=== PATIENT | male | born 1995 | race Two or more races ===

== ENCOUNTER 2017-04-27 19:50 | Emergency (ER) | END 2017-04-27 20:05 | disposition home or self-care (01) ==

== ENCOUNTER 2018-11-20 15:14 | Emergency (ER) | payer MEDICAID, OTHER ==
[~2018-11-20] VITALS: Ht 175.3 cm; Wt 89.0 kg
[~2018-11-20 15:14] MED LIST: ACET500C5 PO; ALBU8.5H8 INH; AZIT250T PO; BENZ-6 PO; CETI10CA PO; IBUP-1542 PO; LORA-186 PO
[2018-11-20 15:16] VITALS: BP 158/70; PULSE 77; RESP 18; Ht 175.3 cm; Wt 89.0 kg
--- NOTE | 2018-11-20 15:21 | EN ---
Date/Time of Note Date/Time of Note DATE: 11/20/18 TIME: 15:20 ER Progress Note 23-year-old male with intermittent chest pain since yesterday. EKG and chest x- ray ordered. DIEGO PENA PA-C Nov 20, 2018 15:21
--- NOTE | 2018-11-20 16:02 | ERD ---
ER Documentation Chief Complaint Chief Complaint cwp intermittent since yesterday HPI 23-year-old otherwise healthy male presents with intermittent chest wall pain that began yesterday. It is worse when he moves his arm or takes a deep breath. At this time he is asymptomatic. He has no cardiac past medical history. Denies any alcohol or drugs. No fever or recent illness. No cardiac past medical history. No palpitations or shortness of breath. ROS All systems reviewed and are negative except as per history of present illness. Medications Home Meds Active Scripts Azithromycin* (Zithromax*) 250 Mg Tablet, 250 MG PO .ZPACK DIRECTED, #6 TAB TAKE 500 MG (2 TABS) THE FIRST DAY THEN 250 MG (1 TAB) DAYS 2-5 Prov:SALBADOR ORLANDO NP 04/27/17 Acetaminophen* (Tylophen*) 500 Mg Capsule, 1 CAP PO Q6H PRN for PAIN AND OR ELEVATED TEMP, #20 CAP Prov:SALBADOR ORLANDO NP 04/27/17 Ibuprofen* (Motrin*) 600 Mg Tab, 600 MG PO Q6H PRN for PAIN AND OR ELEVATED TEMP, #30 TAB Prov:SALBADOR ORLANDO NP 04/27/17 Albuterol Sulfate* (Proair HFA*) 8.5 Gm Hfa.aer.ad, 2 PUFF INH Q4H PRN for WHEEZING AND SOB, #1 INHALER Prov:SALBADOR ORLANDO NP 04/27/17 Cetirizine Hcl* (Zyrtec*) 10 Mg Capsule, 10 MG PO DAILY, #30 TAB.CHEW Prov:SALBADOR ORLANDO NP 04/27/17 Benzonatate* (Tessalon Perle*) 100 Mg Capsule, 100 MG PO Q8H PRN for COUGH, #30 CAP Prov:SALBADOR ORLANDO NP 04/27/17 Loratadine* (Claritin*) 10 Mg Tablet, 10 MG PO DAILY, #30 TAB Prov:KYE GARG PA-C 01/31/16 Ibuprofen* (Motrin*) 600 Mg Tab, 600 MG PO Q6H PRN for PAIN AND OR ELEVATED TEMP, #30 TAB Prov:KYE GARG-C 01/31/16 Allergies Allergies: Coded Allergies: No Known Allergy (Unverified , 04/27/17) PMhx/Soc Hx Alcohol Use: No Hx Substance Use: No Hx Tobacco Use: No FmHx Family History: No diabetes Physical Exam Vitals Vital Signs Date Temp Pulse Resp B/P (MAP) Pulse Ox O2 O2 Flow FiO2 Time Delivery Rate 11/20/18 98.0 77 18 158/70 99 15:16 (99) Physical Exam INITIAL VITAL SIGNS: Reviewed by me GENERAL: Awake, alert and oriented x 4, well appearing, nontoxic, speaking in full sentences. No acute distress RESPIRATORY: Clear to auscultation bilaterally. Symmetric chest wall rise. No wheezing or rales. No accessory muscle use. CV: Regular rate and rhythm. No murmurs, rubs, or gallops. Procedures/MDM The differential diagnosis includes but is not limited to acute coronary syndrome acute myocardial infarction, pericarditis, pulmonary embolism, aortic dissection, pneumonia, pleural effusion, pneumothorax, GERD, chest wall pain, and others. Patient is young and lacks cardiac risk factors. His EKG is normal with no evidence of ST elevation or acute ischemic changes. Chest x-ray also unremarkable. Likely musculoskeletal versus anxiety related. She tried taking some Tylenol or Motrin at home. Patient counseled regarding my diagnostic impression and care plan. Prior to discharge all questions answered. Pt agrees with treatment plan and understands strict return precautions. Pt is instructed to follow up with primary care provider within 24-48 hours. Precautionary instructions provided including instructions to return to the ER if not improving or for any worsening or changing symptoms or concerns. Departure Diagnosis: Primary Impression: Chest wall pain Condition: Stable Patient Instructions: Chest Wall Strain Additional Instructions: Call your primary care doctor TOMORROW for an appointment during the next 1-2 da ys.See the doctor sooner or return here if your condition worsens before your appointment time. DIEGO PENA PA-C Nov 20, 2018 16:02
== END 2018-11-20 16:00 | disposition home or self-care (01) ==
LOC: E/R 15:14
DX: R07.89 Other chest pain (principal)
CPT/HCPCS: 71045; Z7502; 93005